=== PATIENT | male | born 1975 | race Two or more races ===

== ENCOUNTER 2022-10-30 08:05 | Emergency (ER) | payer SELFPAY ==
[~2022-10-30] VITALS: Ht 170.2 cm; Wt 80.0 kg
[2022-10-30 08:07] VITALS: BP 158/107
[2022-10-30] MEDS ORDERED: IBUPROFEN 600 MG TABLET PO ONE (09:00)
[2022-10-30] MEDS ORDERED: BACLOFEN 10 MG TABLET PO ONE (09:00)
[2022-10-30] MEDS ORDERED: ACETAMINOPHEN 500 MG TABLET PO ONE (09:00)
[2022-10-30] MEDS ORDERED: IBUP-1554 PO (10:03)
[2022-10-30] MEDS ORDERED: BACL10TA PO (10:03)
[2022-10-30] MEDS ORDERED: ACET-2080 PO (10:03)
== END 2022-10-30 10:36 | disposition home or self-care (01) ==
LOC: EMS 08:08
DX: S33.5XXA Sprain of ligaments of lumbar spine, initial encounter (principal); V89.2XXA Person injured in unspecified motor-vehicle accident, traffic, initial encounter; Y93.89 Activity, other specified; Y92.89 Other specified places as the place of occurrence of the external cause; Y99.8 Other external cause status
CPT/HCPCS: 72040; 72070; 72100; 73502; 99284